=== PATIENT | female | born 1970 | race Caucasian/White ===

== ENCOUNTER 2022-02-13 05:55 | Day surgery (SDC) | payer OTHER ==
[~2022-02-13] VITALS: Ht 160 cm; Wt 53.6 kg
[~2022-02-13 05:55] MED LIST: CHOL25TA4 PO; ESTR42.510 VG; FAMO20TA8 PO; FERR325T23 PO; HYDR200T4 PO; LEVO75 PO; SODIUM CHLORIDE 0.9% 1,000 ML ONE
[2022-02-13] MEDS ORDERED: SODIUM CHLORIDE 0.9% 1,000 ML IV ONE (06:00)
[2022-02-13 06:42] LABS: COVID AG,FIA SOURCE NASOPHARYNGEAL
[2022-02-13] MEDS ORDERED: ETHYL ALCOHOL 62% ANTISEPTIC NASAL SANITIZER 0.6 ML AMPUL NASAL ONE (08:00)
[2022-02-13 09:56] LABS: GLUCOMETER DEV NAME(LOC) SDS.; GLUCOSE,POINT OF CARE 104 MG/DL (70-110)
[2022-02-13] MEDS ORDERED: OXYGEN THERAPY IH SCH (20:00)
== END 2022-02-13 10:20 | disposition home or self-care (01) ==
LOC: SURGERY 05:55
PROVIDERS: ATTEND Surgery
DX: K44.9 Diaphragmatic hernia without obstruction or gangrene (principal); E03.9 Hypothyroidism, unspecified; E11.9 Type 2 diabetes mellitus without complications; I10 Essential (primary) hypertension; Z88.0 Allergy status to penicillin; Z88.2 Allergy status to sulfonamides; Z90.710 Acquired absence of both cervix and uterus; Z98.890 Other specified postprocedural states; Z79.899 Other long term (current) drug therapy
CPT/HCPCS: 43235; 87426; 82962; J7030; C9803